=== PATIENT | male | born 1995 | race African-American/Black ===

== ENCOUNTER 2017-03-10 13:07 | Emergency (ER) | payer SELFPAY ==
[~2017-03-10] VITALS: Ht 180.3 cm; Wt 68.0 kg
[2017-03-10 14:07] LABS: BILIRUBIN,URINE NEGATIVE (NEG); GLUCOSE,URINE NEGATIVE (NEG); NITRITE,URINE NEGATIVE (NEG); PROTEIN,URINE 30 mg/dL (NEG-TRACE)
--- NOTE | 2017-03-10 14:36 | RAD ---
ACUTE ABDOMEN SERIES Clinical Indication: LLQ pain Comparison: None. Findings: Normal lung volume. No focal consolidations. Normal pulmonary vasculature. No pleural effusion or pneumothorax. The cardiomediastinal silhouette and great vessels are normal. Nonspecific bowel gas pattern with relative paucity of small bowel gas. No dilated loops of bowel. No free air. No acute osseous abnormality. IMPRESSION: 1. Nonspecific bowel gas pattern with relative paucity of small bowel gas. No dilated loops of bowel. No free air. 2. No acute cardiopulmonary process.
[2017-03-10 14:51] LABS: BACTERIA,URINE 0 /HPF (0-FEW); RBC,URINE 0 /HPF (0-2); SQUAMOUS EPITHELIAL CELL,UR OCC /LPF; WBC,URINE OCC /HPF (0-4)
[2017-03-10 15:15] VITALS: BP 98/63
[2017-03-10] MEDS ORDERED: DICY20TA3 PO (15:38)
--- NOTE | 2017-03-10 15:38 | PHYS DOC ---
Past Medical History Past Medical History: No Pertinent History Past Surgical History: No Surgical History Alcohol Use: Occasionally Drug Use: Marijuana Adult General Chief Complaint Chief Complaint: ABDOMINAL PAIN HPI HPI Patient is a 22 year old male who presents with left lower quadrant abdominal pain that began 2 weeks ago, patient states his pain began when the girlfriend reported she has abdominal pain. Patient denies any chance he is constipated. Denies any nausea/vomiting. Denies any concerns for STDs. Denies any history of kidney stones. Review of Systems Review of Systems Constitutional: Denies fever or chills [] Eyes: Denies change in visual acuity, redness, or eye pain [] HENT: Denies nasal congestion or sore throat [] Respiratory: Denies cough or shortness of breath [] Cardiovascular: No additional information not addressed in HPI [] GI: Left lower quadrant abdominal pain : Denies dysuria or hematuria [] Musculoskeletal: Denies back pain or joint pain [] Integument: Denies rash or skin lesions [] Neurologic: Denies headache, focal weakness or sensory changes [] Endocrine: Denies polyuria or polydipsia [] Physical Exam Physical Exam Constitutional: Well developed, well nourished, no acute distress, non-toxic appearance. [] HENT: Normocephalic, atraumatic, bilateral external ears normal, oropharynx moist, no oral exudates, nose normal. [] Eyes: PERRLA, EOMI, conjunctiva normal, no discharge. [] Neck: Normal range of motion, no tenderness, supple, no stridor. [] Cardiovascular:Heart rate regular rhythm, no murmur [] Lungs & Thorax: Bilateral breath sounds clear to auscultation [] Abdomen: Bowel sounds normal, soft, no tenderness, no masses, no pulsatile masses. [] Skin: Warm, dry, no erythema, no rash. [] Back: No tenderness, no CVA tenderness. [] Extremities: No tenderness, no cyanosis, no clubbing, ROM intact, no edema. [] Neurologic: Alert and oriented X 3, normal motor function, normal sensory function, no focal deficits noted. [] Psychologic: Affect normal, judgement normal, mood normal. [] Current Patient Data Vital Signs Vital Signs Date Time Temp Pulse Resp B/P (MAP) Pulse Ox O2 Delivery O2 Flow Rate FiO2 7/25/17 15:15 49 20 98/63 (75) 100 Room Air 03/10/17 13:31 98.0 98.0 Lab Values Laboratory Tests Test 03/10/17 13:48 Urine Color Yellow Urine Clarity Clear Urine pH 7.0 Urine Specific [place] >=1.030 Urine Protein 30 mg/dL (NEG-TRACE) Urine Glucose (UA) Negative mg/dL (NEG) Urine Ketones (Stick) Trace mg/dL (NEG) Urine Blood Negative (NEG) Urine Nitrite Negative (NEG) Urine Bilirubin Negative (NEG) Urine Urobilinogen Dipstick 1.0 mg/dL (0.2 mg/dL) Urine Leukocyte Esterase Trace (NEG) Urine RBC 0 /HPF (0-2) Urine WBC Occ /HPF (0-4) Urine Squamous Epithelial Cells Occ /LPF Urine Bacteria 0 /HPF (0-FEW) Urine Mucus Mod /LPF EKG EKG [] Radiology/Procedures Radiology/Procedures [] Course & Med Decision Making Course & Med Decision Making Pertinent Labs and Imaging studies reviewed. (See chart for details) Patient is in the ED with complaints of left lower quadrant abdominal pain that began 2 weeks ago and has been going on intermittently. He states his pain began when his girlfriend reported she has abdominal pain. Acute abdominal series is negative for any acute fracture. Urine negative for blood. Patient to be discharged with dicyclomine. Provided GI for follow-up in 1-2 weeks. Dragon Disclaimer Dragon Disclaimer This electronic medical record was generated, in whole or in part, using a voice recognition dictation system. Departure Departure Impression: Primary Impression: Left lower quadrant abdominal pain of unknown etiology Disposition: 01 HOME, SELF-CARE Condition: STABLE Referrals: NO PCP (PCP) NEIL CARPENTER MD follow up in one week Patient Instructions: Abdominal Pain Additional Instructions: You were seen for left lower quadrant abdominal pain. Follow-up provided doctor in one week if pain continues. Scripts Dicyclomine Hcl (DICYCLOMINE HCL) 20 Mg Tablet 1 TAB PO TID, #30 TAB 1 Refill Prov: JADA CASTRO RICHIE 03/10/17 JADA CASTRO RICHIE Mar 10, 2017 15:38
== END 2017-03-10 15:50 | disposition home or self-care (01) ==
LOC: ER 13:07
DX: R10.32 Left lower quadrant pain (principal); F12.10 Cannabis abuse, uncomplicated
CPT/HCPCS: 74022; 81001; 99285-25